=== PATIENT | female | born 1990 | race Caucasian/White ===

== ENCOUNTER 2019-08-09 14:23 | Outpatient (CLI) | payer BC, SELFPAY ==
--- NOTE | 2019-08-09 14:34 | XR_ITS ---
WS: [id number] LATERAL CERVICAL SPINE: 3 view. Lateral radiographs are performed in upright neutral, flexion and extension to the patient's toleranc e. HISTORY: CERVICALGIA COMPARISON: None available. Straightening and slight reversal of the normal cervical lordosis centered at C5-6. Endplate osteophy dora from C4 to C6. Neutral and flexion posterior alignment is within normal limits. During extension there is less than 2 mm retrolisthesis of C2, C3 and C4. XR/XR cervical spine fl/ex [id number] IMPRESSION: 1. Mild cervical spondylosis. 2. No instability.
== END 2019-08-09 14:24 | disposition home or self-care (01) ==
PROVIDERS: Family Provider Nurse Practitioner Family; PCP Nurse Practitioner Family; Referring Provider Nurse Practitioner Family; Visit Provider Nurse Practitioner
DX: M47.892 Other spondylosis, cervical region (principal); M54.2 Cervicalgia
CPT/HCPCS: 72040

== ENCOUNTER 2020-06-09 13:58 | Outpatient (CLI) | payer BC, SELFPAY ==
--- NOTE | 2020-06-09 14:08 | US_ITS ---
WS: [id number] Bilateral breast ultrasound, 06/09/2020 Clinical Data: LUMP IN L BREAST, UPPER OUTER QUADRANT Comparison: None. Findings: The bilateral breast ultrasounds were performed in the upper outer aspects of both breasts. Only norm al breast tissue could be seen. No cysts or masses were noted. US/US breast BI limited* [id number] Impression: 1. Negative bilateral breast ultrasound of the upper outer aspects. 2. Recommend clinical follow-up. BIRADS: 1-Negative FOLLOW UP: See Report
== END 2020-06-09 13:59 | disposition home or self-care (01) ==
LOC: RAD 14:02
PROVIDERS: PCP Physician Assistant Medical; Visit Provider Obstetrics & Gynecology
DX: N63.11 Unspecified lump in the right breast, upper outer quadrant (principal); N63.21 Unspecified lump in the left breast, upper outer quadrant
CPT/HCPCS: 76642